=== PATIENT | female | born 1975 | race Caucasian/White ===

== ENCOUNTER 2024-01-02 13:36 | Emergency (ER) | payer OTHER | END 2024-01-02 16:21 | disposition home or self-care (01) | LOC: CSHERS 13:36 | DX: F43.0 Acute stress reaction (principal) | CPT/HCPCS: 80053; 83605; 83690; 85025; 93005; 96374; 96375; J2060; J2550 ==

== ENCOUNTER 2024-02-28 18:33 | Emergency (ER) | payer OTHER ==
[2024-02-28 19:21] LABS: #Basophils 0.06 10x3/uL (0.0-0.2); #Eosinphils 0.22 10x3/uL (0.0-0.5); #Neutrophils 7.46 10x3/uL (1.5-8.4); %Basophils 0.5 % (0.0-2.0); %Eosinophils 1.8 % (0.0-6.0); %Monocytes 8.8 % (0.0-10.0); %Neutrophils 59.7 % (40.0-75.0); Hematocrit 43.9 % (34.9-44.5); Hemoglobin 14.5 g/dL (12.0-15.5); Mean Corpuscular Hemoglobin 28.3 pg (27.0-33.0); Mean Corpuscular Volume 85.6 fL (81.6-98.3); Mean Platelet Volume 9.8 fL (7.4-10.4); Platelet Count 415 10x3/uL (150-450); RBC Distribution Width 13.3 % (11.5-14.5); Red Blood Cell (RBC) Count 5.13 10x6/uL (3.90-5.03); White Blood Cell (WBC) Count 12.5 10x3/uL (3.5-10.5)
[2024-02-28] MEDS ORDERED: Ketorolac Tromethamine 30 MG (1 mL) VIAL ONE (19:22)
[2024-02-28 19:29] LABS: ALT (SGPT) 8 U/L (8-55); AST (SGOT) 17 U/L (5-34); Albumin 4.2 g/dL (3.5-5.0); Alkaline Phosphatase 86 U/L (40-110); Anion Gap 16 mmol/L (10-20); BUN (Urea Nitrogen) 14 mg/dL (7.0-18.7); Bilirubin, Total 0.3 mg/dL (0.2-1.2); Calc. Creatinine Clearance 0 mL/min (70-130); Calcium 11.1 mg/dL (7.8-10.44); Carbon Dioxide 31 mmol/L (22-29); Chloride 94 mmol/L (98-107); Estimated GFR 50; Globulin 3.8 g/dL (2.4-3.5); Glucose 137 mg/dL (70-105); Magnesium 1.8 mg/dL (1.6-2.6); Potassium 3.5 mmol/L (3.5-5.1); Sodium 137 mmol/L (136-145)
[2024-02-28 19:33] LABS: Bilirubin Neg (Negative); Blood, Urine Negative (Negative); Clarity Slightly Cloudy (Clear); Glucose, Urine (Dipstick) Normal (Negative); Ketone, Urine Negative (Negative); Leukocyte Negative (Negative); Nitrite Negative (Negative); Protein, Urine (Dipstick) Negative (Neg-Trace); Urobilinogen Normal mg/dL (Less than 2)
[2024-02-28 19:35] LABS: BHCG - Serum Negative (NEGATIVE); Pregs Control Background? CLEAR/WHITE (CLR/WHITE); Pregs Control Bar Appear? YES (CONTROL BAR)
[2024-02-28 20:00] LABS: Bacteria/HPF None Seen HPF (None Seen); CAUTI Indications for Culture Pelvic or flank pain; RBC/HPF None Seen HPF (0-3); Squamous Epithelial 0-3 HPF (0-3); WBC/HPF None Seen HPF (0-3)
[2024-02-28 20:01] LABS: Urine Culture Reflex No No
[2024-02-28] MEDS ORDERED: Lorazepam 0.5 MG TAB ONE (20:18)
== END 2024-02-28 20:52 | disposition home or self-care (01) ==
LOC: CSHERS 18:33
DX: K31.84 Gastroparesis (principal)
CPT/HCPCS: 80053; 81001; 83735; 84443; 84703; 85025; 93005; 96361; 96365; 96375; J1885; J2550